=== PATIENT | male | born 1950 | race Caucasian/White ===

== ENCOUNTER 2017-02-05 14:50 | Outpatient (CLI) | payer MEDICARE, OTHER ==
[2017-02-05 15:48] LABS: BILIRUBIN,URINE NEGATIVE (NEGATIVE)
[2017-02-05 15:51] LABS: UA CHARGE (STRIP ONLY) YES; UR CULTURE IF IND NOT INDICATED
[2017-02-05 16:01] LABS: BASOPHILS # (AUTO) 0.1 10^3/uL (0.0-0.1); BASOPHILS % (AUTO) 0.7 %; EOSINOPHILS # (AUTO) 0.2 10^3/uL (0.0-0.7); HCT - HEMATOCRIT 36.9 % (42.0-52.0); HGB - HEMOGLOBIN 12.2 g/dL (14.0-18.0); LYMPHOCYTES % (AUTO) 20.9 %; MEAN CORPUSCULAR HGB CONC 33.1 g/dL (32.0-36.0); MEAN CORPUSCULAR VOLUME 87.8 fL (80.0-94.0); NEUTROPHILS # (AUTO) 6.5 10^3/uL (1.5-6.6); NEUTROPHILS % (AUTO) 66.4 %; RED CELL DISTRIBUTION WIDTH 12.9 % (12.0-15.0); UNCORRECTED WHITE BLOOD COUNT 9.8 x10^3/uL; WHITE BLOOD COUNT 9.8 x10^3/uL (4.8-10.8)
[2017-02-05 16:02] LABS: ALBUMIN/GLOBULIN RATIO 0.8 (1.0-2.2); BILIRUBIN,TOTAL 0.6 mg/dL (0.2-1.0); CALCIUM 8.8 mg/dL (8.5-10.3); CREATININE 0.7 mg/dL (0.6-1.2); POTASSIUM 3.5 mmol/L (3.5-5.0); TOTAL PROTEIN 7.7 g/dL (6.7-8.2)
--- NOTE | 2017-02-06 09:04 | XRAY Report ---
TWO-VIEW CHEST: 02/05/2017 CLINICAL INDICATION: Night sweats. FINDINGS: Frontal and lateral views of the chest demonstrate a normal cardiac silhouette. The lungs are clear. No effusion or pneumothorax is present. IMPRESSION: NORMAL CHEST. JOB #: [id number] EXT JOB #:[id number]
== END 2017-02-05 14:51 | disposition home or self-care (01) ==
LOC: LAB 14:50
PROVIDERS: ATTEND Internal Medicine
DX: R61 Generalized hyperhidrosis (principal); N20.1 Calculus of ureter
CPT/HCPCS: 36415; 71020; 80053; 81001; 81003; 84443; 85025; 85651; 86140; 87040; 87086

== ENCOUNTER 2017-02-10 07:55 | Outpatient (CLI) | payer MEDICARE, OTHER | END 2017-02-10 07:56 | disposition home or self-care (01) | LOC: LAB.F 07:55 | PROVIDERS: ATTEND Internal Medicine | DX: R61 Generalized hyperhidrosis (principal) | CPT/HCPCS: 36415; 81599; 82040; 84270; 84403 ==

== ENCOUNTER 2017-02-10 12:09 | Outpatient (CLI) | payer MEDICARE, OTHER ==
[2017-02-10] MEDS ORDERED: IOPAMIDOL-300 100 ML VIAL ONE (13:38)
[2017-02-10] MEDS ORDERED: IOPAMIDOL-300 50 ML VIAL ONE (13:38)
[2017-02-10] MEDS ORDERED: IOPAMIDOL-300 50 ML VIAL PO ONE (15:40)
[2017-02-10] MEDS ORDERED: IOPAMIDOL-300 100 ML VIAL IVP ONE (15:40)
--- NOTE | 2017-02-11 11:52 | CT Report ---
CHEST CT: 02/10/2017 HISTORY: Night sweats. TECHNIQUE: Axial images of the chest with 100 mL Isovue-300 and multiplanar reconstructions. COMPARISON: Chest x-ray 02/05/2017. FINDINGS: No evidence of pathologically enlarged hilar, mediastinal, axillary, or supraclavicular ly mph nodes. No pleural effusion or pneumothorax. No pulmonary nodules, focal consolidation, signific ant emphysematous change, or other abnormality. Mild degenerative change with prominent vertebral body spurring in the thoracic spine. No bone destr uction. Normal-sized aorta without evidence of aneurysm or dissection. IMPRESSION: NEGATIVE CHEST CT. In accordance with CT protocol optimization, one or more of the following dose reduction techniques w ere utilized for this exam: automated exposure control, adjustment of mA and/or KV based on patient size, or use of iterative reconstructive technique. JOB #: [id number] EXT JOB #:[id number]
--- NOTE | 2017-02-11 12:10 | CT Report ---
CT SCAN ABDOMEN AND PELVIS: 02/10/2017 HISTORY: Night sweats. COMPARISON: 06/20/2013 TECHNIQUE: Axial images of the abdomen and pelvis after oral contrast administration and the intravenous infusion of 100 mL of Isovue 300. Multiplanar reconstructions. In accordance with CT protocol optimization, one or more of the following dose reduction techniques were utilized for this exam: automated exposure control, adjustment of mA and/or KV based on patient size, or use of iterative reconstructive technique. FINDINGS: No radiopaque gallstones. Negative liver, spleen, adrenal glands, pancreas. Bilateral renal nephrolithiasis without evidence of hydronephrosis. Largest stone in the left lower pole measuring 12 mm maximum dimension. Two subcentimeter areas of low attenuation related to the right kidney too small to accurately characterize on this study. Multiple tiny nonspecific periaortic lymph nodes are present. No pathologically enlarged lymph nodes are seen. No masses or free upper abdominal fluid. The prostate is markedly enlarged measuring approximately 7.6 x 5.3 x 6.3 cm, volume approximately 133 mL. This has increased significantly compared with 2013. There is marked elevation of the bladder base. There is one punctate calcification in the midline posterior bladder, image 81. Minimal sigmoid diverticulosis without diverticulitis. Minor degenerative change in the spine. No bone destruction. IMPRESSION: 1. EXTENSIVE BILATERAL NEPHROLITHIASIS, LEFT GREATER THAN RIGHT, WITHOUT OBSTRUCTION. 2. MARKEDLY ENLARGED PROSTATE, VOLUME APPROXIMATELY 133 ML. 3. ONE PUNCTATE MIDLINE BLADDER CALCIFICATION. 4. 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 OTHER INCIDENTAL FINDINGS ABOVE. JOB #: [id number] EXT JOB #: [id number] [facility]
== END 2017-02-10 12:10 | disposition home or self-care (01) ==
LOC: DI 12:09
PROVIDERS: ATTEND Internal Medicine
DX: R61 Generalized hyperhidrosis (principal); N20.0 Calculus of kidney; N40.0 Benign prostatic hyperplasia without lower urinary tract symptoms; N21.0 Calculus in bladder
CPT/HCPCS: 36415; 71260; 74177; 81599; 84403; Q9967; 82040; 84270

== ENCOUNTER 2017-02-17 13:44 | Outpatient (CLI) | payer MEDICARE, OTHER ==
[2017-02-17] MEDS ORDERED: GADOBUTROL 7.5 MMOL/7.5 ML VIAL ONE (14:05)
[2017-02-17] MEDS ORDERED: GADOBUTROL 7.5 MMOL/7.5 ML VIAL IVP ONE (14:59)
--- NOTE | 2017-02-17 16:17 | MRI Report ---
EXAM: MRI BRAIN AND PITUITARY EXAM DATE: 02/17/2017 03:10 PM. CLINICAL HISTORY: HYPOGONADISM, NIGHT SWEATS. COMPARISON: None. TECHNIQUE: Multiplanar, multisequence T1-weighted and fluid-sensitive MR sequences of the brain and p ituitary were performed. Other: None. IV Contrast: 7.5 cc GADAVIST. FINDINGS: Brain Volume: Normal for age. Pituitary: 5.4 mm craniocaudally x 5.4 mm AP x 12.2 mm transversely. Within the posterior right asp ect of the pituitary is a questionable area of hypoenhancement measuring 1.5 x 1.9 x 1.7 mm (cc by TR V by AP). There is no suprasellar extension or mass effect in the overlying optic structures. The pit uitary infundibulum is midline and appears normal. Cavernous sinus appear normal with normal cavernou s ICA flow voids. Parenchyma/Dura: No acute parenchymal hemorrhage, mass, or midline shift. Scattered areas of T2/FLAIR signal hyperintensity seen. No areas of restricted diffusion to suggest acute infarct. No abnormal a reas of parenchyma susceptibility artifact. No abnormal postcontrast enhancement. Ventricles/Cisterns: No abnormal extraction fluid collection/mass seen. Ventricles and sulci appear a ge-appropriate. Cisterns are patent. Fluid is seen within Meckel's caves. The visualized internal aud itory canals appear clear. Sinuses: Small left maxillary mucosal retention cyst versus polyp. Mastoid air cells and middle ear c avities are clear. Orbits: Normal. Vasculature: Visualized major intracranial flow voids appear maintained. Dural sinuses are patent. Bones: Normal. Other: None. IMPRESSION: 1. Questionable area of hypoenhancement within the posterior right pituitary measuring 1.5 x 1.9 x 1. 7 mm (cc by TRV by AP) that may represent a microadenoma. No suprasellar extension or cavernous sinus extension. 2. No acute infarct, intracranial hemorrhage, parenchymal mass, hydrocephalus, or abnormal parenchyma l enhancement. 3. Scattered white matter changes that while nonspecific may represent sequela of chronic small vesse l ischemic disease. [facility] Referring Provider Line: [phone] SITE ID: [id number]
== END 2017-02-17 13:45 | disposition home or self-care (01) ==
LOC: DI 13:44
PROVIDERS: ATTEND Internal Medicine
DX: E29.1 Testicular hypofunction (principal); R61 Generalized hyperhidrosis; H53.9 Unspecified visual disturbance
CPT/HCPCS: 70553; A9585

== ENCOUNTER 2017-02-18 07:33 | Outpatient (CLI) | payer MEDICARE, OTHER ==
[2017-02-18 11:25] LABS: FOLLICLE STIMULATING HORMONE 11.69 mIU/mL
[2017-02-18 11:26] LABS: LUTEINIZING HORMONE 8.17 mIU/mL
== END 2017-02-18 07:34 | disposition home or self-care (01) ==
LOC: LAB.F 07:33
PROVIDERS: ATTEND Internal Medicine
DX: E29.1 Testicular hypofunction (principal)
CPT/HCPCS: 36415; 83001; 83002

== ENCOUNTER 2017-02-18 13:07 | Outpatient (CLI) | payer MEDICARE, OTHER | END 2017-02-18 13:08 | disposition home or self-care (01) | LOC: LAB.F 13:07 | PROVIDERS: ATTEND Internal Medicine | DX: R61 Generalized hyperhidrosis (principal) | CPT/HCPCS: 85651; 86140 ==

== ENCOUNTER 2018-04-01 07:47 | Outpatient (CLI) | payer MEDICARE, OTHER ==
[2018-04-01 10:33] LABS: BASOPHILS % (AUTO) 0.7 %; EOSINOPHILS # (AUTO) 0.1 10^3/uL (0.0-0.7); EOSINOPHILS % (AUTO) 2.6 %; HGB - HEMOGLOBIN 15.1 g/dL (14.0-18.0); LYMPHOCYTES # (AUTO) 1.9 10^3/uL (1.5-3.5); LYMPHOCYTES % (AUTO) 41.7 %; MEAN CORPUSCULAR HEMOGLOBIN 30.5 pg (27.0-31.0); MEAN CORPUSCULAR HGB CONC 33.8 g/dL (32.0-36.0); MEAN CORPUSCULAR VOLUME 90.2 fL (80.0-94.0); MEAN PLATELET VOLUME 7.2 fL (7.4-11.4); MONOCYTES # (AUTO) 0.5 10^3/uL (0.0-1.0); MONOCYTES % (AUTO) 10.3 %; NEUTROPHILS % (AUTO) 44.7 %; PLT - PLATELET COUNT 240 10^3/uL (130-450); RED BLOOD COUNT 4.94 10^6/uL (4.70-6.10); RED CELL DISTRIBUTION WIDTH 13.5 % (12.0-15.0); WHITE BLOOD COUNT 4.5 x10^3/uL (4.8-10.8)
[2018-04-01 10:50] LABS: ALBUMIN 4.4 g/dL (3.2-5.5); ALBUMIN/GLOBULIN RATIO 1.3 (1.0-2.2); CALCIUM 9.2 mg/dL (8.5-10.3); CREATININE 0.8 mg/dL (0.6-1.2); TOTAL PROTEIN 7.7 g/dL (6.7-8.2)
== END 2018-04-01 07:48 | disposition home or self-care (01) ==
LOC: LAB.F 07:47
PROVIDERS: ATTEND Internal Medicine
DX: R97.20 Elevated prostate specific antigen [PSA] (principal); R61 Generalized hyperhidrosis; D50.9 Iron deficiency anemia, unspecified; N40.0 Benign prostatic hyperplasia without lower urinary tract symptoms; N20.0 Calculus of kidney; I10 Essential (primary) hypertension
CPT/HCPCS: 36415; 80053; 84153; 84443; 85025

== ENCOUNTER 2019-03-18 08:06 | Outpatient (CLI) | payer MEDICARE, OTHER ==
[2019-03-18 10:25] LABS: ALBUMIN 4.3 g/dL (3.2-5.5); ALBUMIN/GLOBULIN RATIO 1.3 (1.0-2.2); ALKALINE PHOSPHATASE 52 IU/L (42-121); ALT ALANINE AMINOTRANSFERASE 26 IU/L (10-60); AST ASPARTATE AMINOTRANSFERASE 26 IU/L (10-42); BILIRUBIN,TOTAL 0.8 mg/dL (0.2-1.0); BUN - BLOOD UREA NITROGEN 26 mg/dL (6-20); CALCIUM 9.3 mg/dL (8.5-10.3); CARBON DIOXIDE - CO2 30 mmol/L (21-32); CHLORIDE 100 mmol/L (101-111); CHOL/HDL RATIO 4.2 (<5.0); CHOLESTEROL 206 mg/dL; CREATININE 0.9 mg/dL (0.6-1.2); GFR - MDRD 84 (>89); GLUCOSE 102 mg/dL (70-100); HDL CHOLESTEROL 49 mg/dL; LDL CHOLESTEROL,CALCULATED 133 mg/dL; LDL/HDL RATIO 2.7 (<3.6); SODIUM 139 mmol/L (135-145); TOTAL PROTEIN 7.5 g/dL (6.7-8.2); VLDL CHOLESTEROL 24 mg/dL
== END 2019-03-18 08:07 | disposition home or self-care (01) ==
LOC: LAB.S 08:06
PROVIDERS: ATTEND Internal Medicine
DX: I10 Essential (primary) hypertension (principal)
CPT/HCPCS: 36415; 80053; 80061; 83721

== ENCOUNTER 2019-06-13 11:15 | Outpatient (CLI) | payer MEDICARE, OTHER ==
[2019-06-13 20:09] VITALS: BP 149/91
--- NOTE | 2019-06-13 20:09 | SLEEP CARE CONSULTATION ---
Information from patient questionnaire entered by Nataliya Estrada. I have reviewed and concur with the information entered by Nataliya Estrada. This document represents the service I personally performed and the decisions made by me, France Shin MD, [facility]. History of Present Illness Reason for Visit: New patient Chief Complaint: reports: Insomnia, Observed pauses in breathing Duration of Symptoms: Insomnia - 1 year, pauses in breathing - years Usual bedtime: 2864-7655 Time it takes to fall asleep: 30-120 minutes Snores at night: Yes (per , sometimes) Observed to quit breathing while asleep: Yes Sleeps alone due to snoring: No Number of times waking at night: 1-2 Reasons for waking at night: reports: Bathroom Toss, Turn, or Twitch while sleeping: Yes Recalls having dreams: Yes Usually gets out of bed at: [id number] Feels refreshed in the morning: No Morning headache: No Sleepy or fatigued during the day: Yes Ever fallen asleep while driving: No Takes day naps: No (not usually) Dreams during day naps: No Prior sleep studies: No Additional HPI information: I had the pleasure of seeing Mr. Bonilla today regarding the possibility of him having a sleep disorder. As you know, he is a 68 year old gentleman who complains of insomnia and observed apneas. The patient tells me that he normally goes to bed around 10 - 11 pm, and it takes him approximately 30 - 120 minutes to fall asleep. He has been told that he snores loudly and irregularly at night. He has also been observed to stop breathing in his sleep. His can still sleep in the same bed. He can recall waking up on the average of 1 - 2 times during the night. Most of the time he wakes up because of having to use the bathroom. He has never awakened because of his own snoring, choking, or having to gasp for air. There is a lot of tossing and turning in his sleep. No somniloquy (sleep talking) or somnambulism (sleep walking). Generally he can recall having dreams. In the morning he usually gets up out of the bed around 7:30 8 a.m. not feeling refreshed nor rested. He usually does not have a morning headache. During the day he does not feel sleepy or fatigued. His score on [place] Sleepiness Scale is 6 out of 24. He has never fallen asleep while driving nor has had any accident due to sleepiness. He usually does not take naps during the day. Upon falling asleep during the day he denies having vivid dreams. No symptoms of restless leg syndrome. He reports having impaired concentration during the day. Subjective Initial [place] Sleepiness Scale score: 6 Past Medical History Past Medical History: reports: Hypertension, Other (enlarged prostate, kidney stones; s/p tonsillectomy) Social History The patient's occupation is retired. Patient is and lives in [place]. Have you smoked in the past 12 months: No Cigarettes per day (20/pack): 10 Years of smokin Quit date: 1977 Smoking Pack Years: 2.0 Alcohol use: Yes Alcohol amount and frequency: 1-2, 5-6 times/week Caffeine use: Yes Caffeine amount and frequency: 1.5 cups/morning Family History Family history of sleep disordered breathing: No Allergies and Home Medications Drug allergies reviewed: Yes (hydrochlorothiazide, finasteride, terazosin) Home medication list reviewed: Yes Review of Systems Weight loss over past 5 years: 40 Cardiovascular: reports: high blood pressure Respiratory: denies: shortness of breath, wheeze, sputum production, chronic cough, other Gastrointestinal: reports: diarrhea Urinary: reports: frequency, urgency, impotence Neurological: denies: headaches, seizure, head trauma, disorientation, speech dysfunction, gait or balance problems, fainting or unconsciousness, other Psychiatric: denies: Attention Deficit Hyperactivity, anxiety, depression, mood disorder, claustrophobia, other Ear/Nose/Throat: reports: nasal congestion, tonsillectomy, wisdom teeth removed Endocrine: reports: increased urination Musculoskeletal: reports: joint pain Immunologic: denies: sneezing, rash, itching, allergies to food or environment, other Physical Exam Vital signs obtained and entered by: Dr. Shin Blood Pressure: 149/91 Cuff size: regular Heart Rate: 68 O2 Saturation: 98 Height: 5 ft 11 in Weight: 192 lb Body Mass Index: 26.7 BMI Classification: Overweight Neck circumference: 15 Mood/affect: Normal HEENT: No craniofacial malformation Nostrils: patent to airflow Turbinates: normal Septum: midline Mouth and throat: narrow oropharynx Soft palate: long Hard palate: normal Uvula: normal Uvula visualization: 25% Mallampati Class III Tongue: normal in size Tonsils: absent bilaterally Chin and jaw: Retrognathia Neck: normal w/o lymphadenopathy or thyromegaly Heart: regular rate and rhythm Lungs: clear bilaterally Abdomen: soft, non-tender Extremities: no edema or clubbing Neurologic: intact, no focal deficits Impression and Plan IMPRESSION: 1. Obstructive Sleep Apnea-Hypopnea Syndrome, as suggested by history of loud snoring, observed cessation of breath while asleep, and unrefreshed sleep, Narrow oropharynx and retrognathia are potential factors for obstructive sleep apnea-hypopnea syndrome. Pathophysiology of sleep-disordered breathing was discussed. I recommend proceeding to polysomnography to confirm the diagnosis and to assess severity. If he has significant sleep disordered breathing, a manual CPAP titration study will also be performed to find the optimal treatment pressure. I informed the patient of what the sleep studies involve and after some discussion, he agreed to proceed. 2. Insomnia, due to excessive time spent in bed. Prior to the onset, the patient stayed up until 11 pm every night to take care of his mother. Once she passed, he has been going to bed earlier between 9 10 pm. Because he is retired, he gets out of bed around 8 am. This means he is spending 10 11 hours in bed each night, and it is only appropriate that he lies awake in bed for 2 3 hours, assuming the normal sleep requirement of 8 hours a night. Plan: 1. Schedule an in-laboratory polysomnography. 2. Maintain a regular wake up time and spend no more than 8 hours in bed at night. Avoid naps. 4. Return in 1 to 2 weeks after the study to discuss results and initiate therapy. I spent 100% of this visit face to face with the patient with greater than 50% of this was spent time counseling the patient and coordination of care.
== END 2019-06-13 11:16 | disposition home or self-care (01) ==
LOC: SC 11:15
PROVIDERS: ATTEND Internal Medicine Pulmonary Disease
DX: R06.81 Apnea, not elsewhere classified (principal); R06.83 Snoring; G47.8 Other sleep disorders; G47.00 Insomnia, unspecified
CPT/HCPCS: 99203; 99212

== ENCOUNTER 2019-06-20 20:18 | Outpatient (CLI) | payer MEDICARE, OTHER | END 2019-06-20 20:19 | disposition home or self-care (01) | LOC: SC 20:18 | PROVIDERS: ATTEND Internal Medicine Pulmonary Disease | DX: G47.33 Obstructive sleep apnea (adult) (pediatric) (principal); G47.61 Periodic limb movement disorder | CPT/HCPCS: 95810 ==

== ENCOUNTER 2019-06-27 13:03 | Outpatient (CLI) | payer MEDICARE, OTHER ==
--- NOTE | 2019-06-27 13:43 | SLEEP CARE CONSULTATION ---
Information from patient questionnaire entered by Nataliya Estrada. I have reviewed and concur with the information entered by Nataliya Estrada. This document represents the service I personally performed and the decisions made by me, France Shin MD, [facility]. History of Present Illness Initial [place] Sleepiness Scale score: 6 Current [place] Sleepiness Scale score: 5 Additional HPI information: HPI: Mr. Jaiden Bonilla returned with his for follow up of the sleep study he had on 06/20/19. The polysomnography showed that the patient had reduced sleep efficiency due to sleep onset insomnia. Despite moderate sleep fragmentation,, the sleep architecture was normal. Respiratory monitoring showed mild obstructive sleep apnea-hypopnea (AHI = 6.6) associated with frequent arousals, oxyhemoglobin desaturation and mild hypoxia (casie oxygen saturation of 81%). The respiratory events occurred almost exclusively during supine sleep (supine AHI = 26.7; non-supine = 0.50). Snore was light in intensity. There was severe periodic leg movement of sleep contributing to the sleep fragmentation. Cardiac rhythm was normal sinus rhythm without significant arrhythmia. No abnormal behavior (parasomnia) observed during the night. The patient was informed of these findings. I explained to him that he has mild and positional obstructive sleep apnea-hypopnea. He also has severe periodic leg movement of sleep. He reports occasional sensation of restless leg. He had iron deficiency in the past and was evaluated extensively. No etiology was found. Allergies and Home Medications Drug allergies reviewed: Yes Home medication list reviewed: Yes Physical Exam Height: 5 ft 11 in Weight: 192 lb Body Mass Index: 26.7 BMI Classification: Overweight Impression and Plan IMPRESSION: 1. Periodic leg movement of sleep, not bothersome to him. The cause of periodic leg movement of sleep is typically unknown. Few known causes are iron deficiency, renal failure, and selective serotonin reuptake inhibitors. I jono mmend he have his iron and ferritin levels checked again and take iron supplement if they are low. 2. Obstructive sleep apnea-hypopnea, mild, and positional. The patient reports sleeping only on his side at home. He does not wish to use CPAP at this time. 3. Insomnia, due to excessive time spent in bed. As discussed on his prior visit, if he wishes to go to bed at 10:30 pm, he must first get out of bed no later than 6:30 pm. Easiest would be for him to keep the wake up time at 8 am and delay his bedtime to midnight. PLAN: 1. Follow up with his primary care provider in regards to iron deficiency. 2. Avoid sleeping supine. I showed him the tennis ball method. He should inform anesthesiologists and surgeons that he does have obstructive sleep apnea- hypopnea when put in supine position. 3. Return for follow up on as needed basis. I spent 100% of this visit face to face with the patient with greater than 50% of this was spent time counseling the patient and coordination of care.
== END 2019-06-27 13:04 | disposition home or self-care (01) ==
LOC: SC 13:03
PROVIDERS: ATTEND Internal Medicine Pulmonary Disease
DX: G47.33 Obstructive sleep apnea (adult) (pediatric) (principal); G47.61 Periodic limb movement disorder; G47.00 Insomnia, unspecified
CPT/HCPCS: 99213; G0463; 99212

== ENCOUNTER 2019-06-28 09:39 | Outpatient (CLI) | payer MEDICARE, OTHER ==
[2019-06-28 17:32] LABS: BASOPHILS % (AUTO) 0.4 %; EOSINOPHILS # (AUTO) 0.1 10^3/uL (0.0-0.7); EOSINOPHILS % (AUTO) 2.1 %; HGB - HEMOGLOBIN 15.8 g/dL (14.0-18.0); LYMPHOCYTES # (AUTO) 2.1 10^3/uL (1.5-3.5); LYMPHOCYTES % (AUTO) 44.7 %; MEAN CORPUSCULAR HEMOGLOBIN 30.2 pg (27.0-31.0); MEAN CORPUSCULAR HGB CONC 33.1 g/dL (32.0-36.0); MEAN CORPUSCULAR VOLUME 91.2 fL (80.0-94.0); MEAN PLATELET VOLUME 9.9 fL (7.4-11.4); MONOCYTES # (AUTO) 0.4 10^3/uL (0.0-1.0); MONOCYTES % (AUTO) 8.4 %; NEUTROPHILS # (AUTO) 2.1 10^3/uL (1.5-6.6); NEUTROPHILS % (AUTO) 44.4 %; PLT - PLATELET COUNT 236 10^3/uL (130-450); RED BLOOD COUNT 5.23 10^6/uL (4.70-6.10); WHITE BLOOD COUNT 4.8 x10^3/uL (4.8-10.8)
[2019-06-28 18:09] LABS: ALBUMIN 4.3 g/dL (3.2-5.5); ALBUMIN/GLOBULIN RATIO 1.4 (1.0-2.2); BILIRUBIN,TOTAL 0.8 mg/dL (0.2-1.0); CALCIUM 9.5 mg/dL (8.5-10.3); CREATININE 0.9 mg/dL (0.6-1.2); TOTAL PROTEIN 7.3 g/dL (6.7-8.2)
== END 2019-06-28 09:40 | disposition home or self-care (01) ==
LOC: LAB.S 09:39
PROVIDERS: ATTEND Internal Medicine
DX: I10 Essential (primary) hypertension (principal); G25.81 Restless legs syndrome
CPT/HCPCS: 36415; 80053; 82728; 83540; 84466; 85025

== ENCOUNTER 2020-04-09 07:34 | Outpatient (CLI) | payer MEDICARE, OTHER ==
[2020-04-09 15:31] LABS: CHOL/HDL RATIO 4.1 (<5.0); CHOLESTEROL 203 mg/dL; HDL CHOLESTEROL 49 mg/dL; LDL CHOLESTEROL,CALCULATED 133 mg/dL; LDL/HDL RATIO 2.7 (<3.6); VLDL CHOLESTEROL 21 mg/dL
== END 2020-04-09 07:35 | disposition home or self-care (01) ==
LOC: LAB.S 07:34
PROVIDERS: ATTEND Physician Assistant
DX: Z00.00 Encounter for general adult medical examination without abnormal findings (principal); I10 Essential (primary) hypertension; N40.1 Benign prostatic hyperplasia with lower urinary tract symptoms
CPT/HCPCS: 36415; 80061; 83721; 84153

== ENCOUNTER 2021-02-18 07:21 | Outpatient (CLI) | payer MEDICARE, OTHER ==
[2021-02-18 15:17] LABS: BASOPHILS % (AUTO) 0.7 %; EOSINOPHILS # (AUTO) 0.2 10^3/uL (0.0-0.7); EOSINOPHILS % (AUTO) 2.6 %; HCT - HEMATOCRIT 48.1 % (42.0-52.0); HGB - HEMOGLOBIN 15.8 g/dL (14.0-18.0); LYMPHOCYTES # (AUTO) 2.5 10^3/uL (1.5-3.5); LYMPHOCYTES % (AUTO) 43.6 %; MEAN CORPUSCULAR HEMOGLOBIN 30.2 pg (27.0-31.0); MEAN CORPUSCULAR HGB CONC 32.8 g/dL (32.0-36.0); MEAN CORPUSCULAR VOLUME 91.8 fL (80.0-94.0); MEAN PLATELET VOLUME 9.3 fL (7.4-11.4); MONOCYTES # (AUTO) 0.5 10^3/uL (0.0-1.0); MONOCYTES % (AUTO) 8.6 %; NEUTROPHILS # (AUTO) 2.5 10^3/uL (1.5-6.6); NEUTROPHILS % (AUTO) 44.3 %; PLT - PLATELET COUNT 260 10^3/uL (130-450); RED BLOOD COUNT 5.24 10^6/uL (4.70-6.10); WHITE BLOOD COUNT 5.7 x10^3/uL (4.8-10.8)
[2021-02-18 15:44] LABS: ALBUMIN 4.5 g/dL (3.2-5.5); ALBUMIN/GLOBULIN RATIO 1.5 (1.0-2.2); ALKALINE PHOSPHATASE 55 IU/L (42-121); ALT ALANINE AMINOTRANSFERASE 29 IU/L (10-60); AST ASPARTATE AMINOTRANSFERASE 26 IU/L (10-42); BUN - BLOOD UREA NITROGEN 28 mg/dL (6-20); CALCIUM 9.3 mg/dL (8.5-10.3); CARBON DIOXIDE - CO2 32 mmol/L (21-32); CHLORIDE 97 mmol/L (101-111); CHOL/HDL RATIO 3.8 (<5.0); CHOLESTEROL 210 mg/dL; GFR - MDRD 74 (>89); GLUCOSE 104 mg/dL (70-100); HDL CHOLESTEROL 56 mg/dL; LDL CHOLESTEROL,CALCULATED 135 mg/dL; LDL/HDL RATIO 2.4 (<3.6); POTASSIUM 3.2 mmol/L (3.5-5.0); SODIUM 141 mmol/L (135-145); TOTAL PROTEIN 7.5 g/dL (6.7-8.2); TRIGLYCERIDES 94 mg/dL; VLDL CHOLESTEROL 19 mg/dL
== END 2021-02-18 07:22 | disposition home or self-care (01) ==
LOC: LAB.S 07:21
PROVIDERS: ATTEND Internal Medicine
DX: I10 Essential (primary) hypertension (principal)
CPT/HCPCS: 36415; 80053; 80061; 83721; 85025

== ENCOUNTER 2021-09-18 08:21 | Outpatient (CLI) | payer MEDICARE, OTHER ==
[2021-09-18 15:38] LABS: ALBUMIN 3.9 g/dL (3.2-5.5); ALBUMIN/GLOBULIN RATIO 1.2 (1.0-2.2); BILIRUBIN,TOTAL 0.9 mg/dL (0.2-1.0); CALCIUM 9.3 mg/dL (8.5-10.3); POTASSIUM 3.3 mmol/L (3.5-5.0); TOTAL PROTEIN 7.1 g/dL (6.7-8.2)
== END 2021-09-18 08:22 | disposition home or self-care (01) ==
LOC: LAB.S 08:21
PROVIDERS: ATTEND Registered Nurse
DX: E87.6 Hypokalemia (principal)
CPT/HCPCS: 36415; 80053; 83735